=== PATIENT | female | born 1985 | race Caucasian/White ===

== ENCOUNTER 2018-06-24 19:51 | Emergency (ER) | payer OTHER ==
[2018-06-24 20:01] VITALS: BMI 33.3
--- NOTE | 2018-06-24 20:04 | PDOC ---
Rapid Medical Evaluation Chief Complaint: Labor Assessment Time Seen by Provider: 06/24/18 19:58 Medical Evaluation: Allergies Allergy/AdvReac Type Severity Reaction Status Date / Time No Known Allergies Allergy Verified 08/22/14 09:53 06/24/18 20:00 I have performed a brief in person evaluation of this patient. This patient presents with a CC of: complication Pt is a 33 YO fe male who is who states her OB sent her here because when she had her US last week she had a gestational sac in the uterus and "something in the fallopian tube." The patient states that her OB sent her here because her Quantitative HCG was grossly elevated. Pain is a 0/10. PE: Skin: Clear Lungs: Clear Heart: RRR Abd: No pain MS: Moves all extremities without difficulty. Neuro: Alert and oriented, no protanator drift, no slurred speech, no ataxia. 5/ 5 strength in UE and LE Psych: Appropriate affect I have ordered the following: Quantitative HCG The patient will proceed to the ED for further evaluation. Discharge Disposition - Diagnosis Ectopic Qualifiers: Location of ectopic : tubal Intrauterine status: unspecified Laterality: unspecified laterality Qualified Code(s): O00.109 - Unspecified tubal without intrauterine - Referrals - Patient Instructions - Post Discharge Activity
--- NOTE | 2018-06-24 21:31 | PDOC ---
History of Present Illness - General Chief Complaint: ,Possible Stated Complaint: SENT BY PCP Time Seen by Provider: 06/24/18 19:58 History Source: Patient - History of Present Illness Initial Comments: 06/24/18 23:34 33 year old female sent by Dr. Mae for r/o ectopic. patient was seen in the e learning coordinator office + beta with IUp and possible ectopic. patient denies abdominal pain, pelvic pain, urinary symptoms. Past History - Past Medical History Allergies/Adverse Reactions: Allergies Allergy/AdvReac Type Severity Reaction Status Date / Time No Known Allergies Allergy Verified 06/24/18 20:01 Home Medications: Ambulatory Orders Tablet 1 tab PO DAILY 08/22/14 Acetaminophen [Tylenol .Regular Strength -] 650 mg PO Q3H PRN #20 tablet Ferrous Sulfate [Feosol] 325 mg PO BID #60 ud 08/26/14 Witch Joseline 50% (Tucks) [Tucks Pads -] 1 pad TP PRN PRN #1 pad 08/26/14 Asthma: No Cancer: No Cardiac Disorders: No COPD: No Diabetes: No HTN: No Seizures: No Thyroid Disease: No - Suicide/Smoking/Psychosocial Hx Smoking History: Never smoked Have you smoked in the past 12 months: No Hx Alcohol Use: No Drug/Substance Use Hx: No Hx Substance Use Treatment: No Review of Systems - Review of Systems Able to Perform ROS?: Yes Is the patient limited Ugandan proficient: No Constitutional: No: Symptoms Reported, See HPI, Chills, Diaphoresis, Fever, Loss of Appetite, Malaise, Night Sweats, Weakness, Weight Stable, Unintentional Wgt. Loss, Unexplained wgt Loss, Other ABD/GI: No: Symptoms Reported, See HPI, Abdominal Distended, Abd. Pain w/ defecation, Blood Streaked Bowels, Constipated, Diarrhea, Difficulty Swallowing , Nausea, Poor Appetite, Poor Fluid Intake, Rectal Bleeding, Vomiting, Indigestion, Abdominal cramping, Tarry Stools, Other : No: Symptoms Reported, See HPI, Burning, Dysuria, Discharge, Frequency, Flank Pain, Hematuria, Incontinence, Pain, Urgency, Testicular Mass, Testicular Swelling, Lesions, Testicular Pain, Other *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 - Vital Signs Last Vital Signs Temp Pulse Resp BP Pulse Ox 71 18 170/100 99 06/24/18 19:56 06/24/18 19:56 06/24/18 19:56 06/24/18 19:56 - 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 General Appearance: Yes: Appropriately Dressed Female Pelvic Exam: positive: normal external exam, cervical os closed, normal adnexa, other (white aginal discharge). negative: CMT, vaginal bleeding Gastrointestinal/Abdominal: positive: Normal Bowel Sounds, Soft. negative: Tender Medical Decision Making - Medical Decision Making 06/24/18 23:[address] Seth covering Dr. mae. reviewed US result. recommends outpatient follow up. no further lab testing required. US reviewed with Dr. Napier no adnexal mass noted. 06/24/18 23:46 *DC/Admit/Observation/Transfer Diagnosis at time of Disposition: Intrauterine normal Qualifiers: Trimester: first trimester Qualified Code(s): Z34.91 - Encounter for supervision of normal , unspecified, first trimester - Discharge Dispostion Disposition: HOME - Referrals Referrals: Madeline Phelan MD [Primary Care Provider] - Millie Mae DO [Staff Physician] - Call tomorrow - Patient Instructions Printed Discharge Instructions: Managing Symptoms of Additional Instructions: Additional Instructions: * Please call your personal physician to report your Emergency Department visit and to report your progress, if any. * If there is no improvement in symptoms in 2 days call your physician. * Return to the Emergency Department for any worsening symptoms. drink plenty of fluids follow up with your doctor as soon as possible. - Post Discharge Activity Forms/Work/School Notes: Back to Work
[2018-06-25 00:08] VITALS: TEMP 98.2
[2018-06-25 00:09] VITALS: BP 140/76; PULSE 72
== END 2018-06-25 00:09 | disposition home or self-care (01) ==
LOC: JER 19:51
DX: O26.891 Other specified pregnancy related conditions, first trimester (principal); Z03.79 Encounter for other suspected maternal and fetal conditions ruled out; Z3A.01 Less than 8 weeks gestation of pregnancy
CPT/HCPCS: 36415; 76817-TC; 84702; 99281-25

== ENCOUNTER 2019-02-16 10:29 | Inpatient (IN) | payer OTHER ==
[2019-02-16 11:55] LABS: BASO % 0.4 % (0-2.0); EOS % 0.9 % (0-4.5); HEMATOCRIT 33.5 % (32.4-45.2); HEMOGLOBIN 10.7 GM/dL (10.7-15.3); LYMPH % 19.9 % (8-40); MCH 23.9 pg (25.7-33.7); MCHC 32.1 g/dl (32.0-36.0); MEAN CELL VOLUME 74.5 fl (80-96); MEAN PLT VOLUME 7.8 fl (7.5-11.1); MONO % 5.7 % (3.8-10.2); NEUT % 73.1 % (42.8-82.8); PLATELET COUNT 358 K/MM3 (134-434); RBC 4.49 M/mm3 (3.60-5.2); RDW 16.2 % (11.6-15.6); WHITE BLOOD COUNT 11.9 K/mm3 (4.0-10.0)
[2019-02-16 12:04] LABS: INR 0.94 (0.83-1.09); PROTHROMBIN TIME (PATIENT) 11.1 SEC (9.7-13.0)
[2019-02-16 12:07] LABS: ACTIVATED PTT 29.8 SECONDS (25.2-36.5)
[2019-02-16 12:29] LABS: BLOOD UREA NITROGEN 12.6 mg/dL (7-18); CALCIUM 9.1 mg/dL (8.5-10.1); CREATININE 0.8 mg/dL (0.55-1.3); POTASSIUM 4.3 mmol/L (3.5-5.1)
[2019-02-16] MEDS ORDERED: AMPICILLIN SODIUM 2 GM VIAL ONE (17:09)
[2019-02-16 17:31] VITALS: BMI 35.1
[2019-02-16] MEDS ORDERED: AMPICILLIN - 2 GM in DEXTROSE 5%-WATER 100 ML IVPB STA (18:34)
[2019-02-16] MEDS ORDERED: AMPICILLIN - 1 GM in DEXTROSE 5%-WATER 100 ML IVPB SCH (18:45)
[2019-02-16] MEDS ORDERED: ELECTROLYTE-148 SOLN 1,000 ML IV SCH ×2 (19:15→20:00)
--- NOTE | 2019-02-16 19:19 | HP ---
Past Medical History - Admission Chief Complaint: rupture of membranes History of Present Illness: 33 y/o female with SIUP at 41 weeks here with c/o ROM. Pt seen in office today , was transverse presentation, planned for c section on 02/18/19. otherwise uncomplicated. History Source: Patient, Medical Record Limitations to Obtaining History: No Limitations - Past Medical History Cardiovascular: No: HTN Pulmonary: No: COPD Gastrointestinal: No: GERD Hepatobiliary: No: Hepatitis B, Hepatitis C Renal/: No: UTI Reproductive: No: Fibroids, PID ...: 2 ...Para: 1 ...Term: 1 ...: 0 ...Spon : 0 ...Induced : 0 ...Multiple Gestation: 0 ...LMP: 05/06/18 ... Weeks Gestation by Dates: 40.6 ...EDC by Dates: 02/10/19 Heme/Onc: No: Anemia Infectious Disease: No: HIV, MRSA, STD's Psych: No: Anxiety, Bipolar, Depression - Past Surgical History Past Surgical History: Yes: None Hx Myomectomy: No Hx Transabdominal Cerclage: No - Smoking History Smoking history: Never smoked Have you smoked in the past 12 months: No - Alcohol/Substance Use Hx Alcohol Use: No - Social History Usual Living Arrangement: Yes: With Spouse ADL: Independent History of Recent Travel: No Home Medications - Allergies Allergies/Adverse Reactions: Allergies Allergy/AdvReac Type Severity Reaction Status Date / Time No Known Allergies Allergy Verified 02/16/19 17:31 - Home Medications Home Medications: Ambulatory Orders Tablet 1 tab PO DAILY 08/22/14 Ferrous Sulfate [Feosol] 325 mg PO BID #60 ud 08/26/14 Review of Systems - Review of Systems Constitutional: reports: No Symptoms Eyes: reports: No Symptoms HENT: reports: No Symptoms Neck: reports: No Symptoms Cardiovascular: reports: No Symptoms Respiratory: reports: No Symptoms Gastrointestinal: reports: No Symptoms Genitourinary: reports: No Symptoms Breasts: reports: No Symptoms Reported Musculoskeletal: reports: No Symptoms Integumentary: reports: No Symptoms Neurological: reports: No Symptoms Endocrine: reports: No Symptoms Hematology/Lymphatic: reports: No Symptoms Psychiatric: reports: No Symptoms 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 - Maternity Vital Signs: Vital Signs Temperature 98.1 F 02/16/19 18:00 Pulse Rate 79 02/16/19 18:00 Respiratory Rate 18 02/16/19 18:00 Blood Pressure 113/61 02/16/19 18:00 O2 Sat by Pulse Oximetry (%) Constitutional: Yes: Well Nourished, No Distress, Calm Eyes: Yes: Conjunctiva Clear, EOM Intact HENT: Yes: Atraumatic, Normocephalic Cardiovascular: Yes: Regular Rate and Rhythm Lungs: Clear to auscultation - Abdominal Exam/OB Number of Fetuses: Single Presentation: Transverse Contractions: Yes Regularity: Irregular Intensity: Mild Category: I - Vaginal Exam/OB Dilatation (cm): 0.5 Effacement (%): 0 - 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 Psychiatric: Yes: Alert, Oriented - Labs Lab Results: CBC, BMP 02/16/19 10:31 02/16/19 10:31 Hemorrhage Risk Assessment - Risk Factors Medium Risk Factors: Yes: None High Risk Factors: Yes: None Risk Score: 1 Risk Level: Medium Risk Problem List - Problems (1) Malpresentation of fetus Code(s): O32.9XX0 - MATERNAL CARE FOR MALPRESENTATION OF FETUS, UNSP, UNSP Assessment/Plan 33 y/o P1 female with SIUP at 40.6 week here with SROM, transverse presentation NPO Onofre catheter plan for delivery risks of procedure discussed with pt and family informed consent obtained anesthesia aware
[2019-02-16] MEDS ORDERED: ELECTROLYTE-148 SOLN 500 ML IV ONE (19:54)
[2019-02-16] MEDS ORDERED: CITRIC ACID/SODIUM CITRATE 30 ML UNIT-DOSE CUP PO ONE (19:54)
[2019-02-16] MEDS ORDERED: METHYLERGONOVINE MALEATE 0.2 MG/1 ML AMP IM PRN (19:57)
[2019-02-16] MEDS ORDERED: IBUPROFEN 800 MG/8 ML IJ IVPB PRN (19:57)
[2019-02-16] MEDS ORDERED: OXYTOCIN 20 UNITS in 0.9% NS 20 UNIT/1,000 ML INFUS.BAG IV SCH (20:00)
[2019-02-16] MEDS ORDERED: AMPICILLIN SODIUM 1 GM VIAL ONE (21:13)
--- NOTE | 2019-02-16 21:54 | PN ---
Ante-Partal Exam - Subjective Subjective: Pt comfortable. Vital Signs: Vital Signs Temperature 98.1 F 02/16/19 18:00 Pulse Rate 79 02/16/19 18:00 Respiratory Rate 18 02/16/19 18:00 Blood Pressure 113/61 02/16/19 18:00 O2 Sat by Pulse Oximetry (%) Bleeding: No Headache: No Visual changes: No Right upper quadrant pain: No Pain (scale 1-10): 0 - Contractions Contractions: Yes Regularity: Irregular Intensity: Unaware - Exam during Labor Heart Rate: 140 Variability: Moderate Category: I Monitor Accelerations: Present Monitor Decelerations: None Exam: Vaginal Dilatation (cm): ft Amniotic Membrane Status: Ruptured Amniotic Fluid: Meconium Stained Presentation: Transverse/Shoulder - Assessment/Plan Assessment/Plan: FHR continues to be category 1 awaiting delivery NPO Onofre placed anesthesia aware
--- NOTE | 2019-02-17 01:22 | OP ---
Operative Note - Note: Operative Date: 02/17/19 Pre-Operative Diagnosis: transverse presentation/malprsentation, SIUP at 41 week Operation: primary LTCS Findings: normal b/l tubes and ovaries, live female Post-Operative Diagnosis: Same as Pre-op Surgeon: Millie Mae Sales And Marketing Vice President: Remy Lind Anesthesiologist/COUNTY ORDINARY: Manoj Valencia Anesthesia: Spinal Specimens Removed: placenta Estimated Blood Loss (mls): 600 Operative Report Dictated: Yes
[2019-02-17] MEDS: FERROUS SO4 325 MG TABLET (FP) PO SCH ×3 (06:59→20:39)
[2019-02-17 08:04] LABS: BASO % 0.3 % (0-2.0); EOS % 0.1 % (0-4.5); HEMATOCRIT 30.4 % (32.4-45.2); HEMOGLOBIN 9.8 GM/dL (10.7-15.3); MCH 24.6 pg (25.7-33.7); MCHC 32.4 g/dl (32.0-36.0); MEAN CELL VOLUME 75.7 fl (80-96); MONO % 5.4 % (3.8-10.2); NEUT % 81.2 % (42.8-82.8); PLATELET COUNT 314 K/MM3 (134-434); RBC 4.01 M/mm3 (3.60-5.2); WHITE BLOOD COUNT 12.7 K/mm3 (4.0-10.0)
[2019-02-17] MEDS: SIMETHICONE 80 MG TAB.CHEW (FP) PO PRN (18:20)
[2019-02-17] MEDS: IBUPROFEN 600 MG TABLET (FP) PO PRN (18:20)
[2019-02-17] MEDS: oxyCODONE HCL 5 MG TABLET PO PRN (18:21)
[2019-02-17] MEDS ORDERED: BISACODYL 10 MG SUPP.RECT RC PRN (19:57)
[2019-02-17] MEDS: AMPICILLIN - 1 GM in DEXTROSE 5%-WATER 100 ML IVPB SCH ×2 (20:40→20:41)
[2019-02-18] MEDS: oxyCODONE HCL 5 MG TABLET PO PRN ×3 (04:07→15:55)
[2019-02-18] MEDS: IBUPROFEN 600 MG TABLET (FP) PO PRN ×3 (04:08→15:56)
--- NOTE | 2019-02-18 07:14 | PN ---
Post Note - Post Date of Delivery: 02/17/19 Vital Signs: Vital Signs - 24 hr 02/17/19 02/17/19 02/17/19 08:00 09:00 10:00 Temperature 99.0 F Pulse Rate 87 Respiratory 18 18 18 Rate Blood Pressure 123/75 02/17/19 02/17/19 02/17/19 11:00 12:00 13:00 Temperature Pulse Rate Respiratory 18 18 18 Rate Blood Pressure 02/17/19 02/17/19 02/17/19 14:00 15:00 16:00 Temperature 99.0 F Pulse Rate 87 Respiratory 18 18 18 Rate Blood Pressure 123/75 02/17/19 02/17/19 02/17/19 17:00 18:00 19:00 Temperature 98.4 F Pulse Rate 87 Respiratory 18 18 18 Rate Blood Pressure 127/86 02/17/19 02/17/19 02/18/19 20:00 22:00 00:00 Temperature 97.9 F Pulse Rate 73 Respiratory 18 18 18 Rate Blood Pressure 119/69 02/18/19 02/18/19 02/18/19 02:00 04:00 06:00 Temperature 97.7 F 98.3 F Pulse Rate 81 78 Respiratory 20 18 20 Rate Blood Pressure 117/71 109/72 Labs: Laboratory Results - last 24 hr 02/17/19 07:07 WBC 12.7 H RBC 4.01 Hgb 9.8 L Hct 30.4 L MCV 75.7 L MCH 24.6 L MCHC 32.4 RDW 16.0 H Plt Count 314 MPV 8.0 Absolute Neuts (auto) 10.3 H Neutrophils % 81.2 Lymphocytes % 13.0 D Monocytes % 5.4 Eosinophils % 0.1 D Basophils % 0.3 Nucleated RBC % 0 - Subjective Subjective: No Complaints, No Nausea or vomiting - Objective Breast: Not engorged Abdomen: Soft, Non-tender, Other (Dressing removed) Uterus: Fundus firm Vagina: Scant lochia Extremities: Non-tender - Assessment/Plan (1) delivery delivered Assessment: Other (POD1) Plan: Routine Care
[2019-02-18] MEDS: FERROUS SO4 325 MG TABLET (FP) PO SCH ×2 (07:49→18:09)
[2019-02-18] MEDS: SIMETHICONE 80 MG TAB.CHEW (FP) PO PRN ×2 (09:00→15:56)
--- NOTE | 2019-02-18 10:51 | PN ---
Progress Note (short form) - Note Progress Note: Post op day#2.S/P C Section under spinal anesthesia with duramorph uneventful.Patient stable and has little pain for which she is on medication.No any anesthesia related problem.Patient Dc from the anesthesia care.
[2019-02-19] MEDS: oxyCODONE HCL 5 MG TABLET PO PRN ×2 (01:09→07:16)
[2019-02-19] MEDS: SIMETHICONE 80 MG TAB.CHEW (FP) PO PRN ×2 (01:09→07:17)
--- NOTE | 2019-02-19 06:11 | PN ---
Post Progress Note Type of Delivery: Primary C/S Vital Signs: Vital Signs Temperature 97.9 F 02/18/19 22:00 Pulse Rate 80 02/18/19 22:00 Respiratory Rate 18 02/18/19 22:00 Blood Pressure 122/69 02/18/19 22:00 O2 Sat by Pulse Oximetry (%) 100 02/18/19 21:00 Uterus: Yes: Fundus Firm, Fundus above umbilicus Incision: Yes: Sutures intact Abdomen/GI: Yes: Abdomen soft Lochia: Yes: Rubra Lochia, amount: Small Extremities: Yes: Calves non-tender. No: Calf tenderness Perineum: Yes: Intact Activity: Ambulating - Labs Labs: CBC WBC 12.7 K/mm3 (4.0-10.0) H 02/17/19 07:07 RBC 4.01 M/mm3 (3.60-5.2) 02/17/19 07:07 Hgb 9.8 GM/dL (10.7-15.3) L 02/17/19 07:07 Hct 30.4 % (32.4-45.2) L 02/17/19 07:07 MCV 75.7 fl (80-96) L 02/17/19 07:07 MCH 24.6 pg (25.7-33.7) L 02/17/19 07:07 MCHC 32.4 g/dl (32.0-36.0) 02/17/19 07:07 RDW 16.0 % (11.6-15.6) H 02/17/19 07:07 Plt Count 314 K/MM3 (134-434) 02/17/19 07:07 MPV 8.0 fl (7.5-11.1) 02/17/19 07:07 Absolute Neuts (auto) 10.3 K/mm3 (1.5-8.0) H 02/17/19 07:07 Neutrophils % 81.2 % (42.8-82.8) 02/17/19 07:07 Lymphocytes % 13.0 % (8-40) D 02/17/19 07:07 Monocytes % 5.4 % (3.8-10.2) 02/17/19 07:07 Eosinophils % 0.1 % (0-4.5) D 02/17/19 07:07 Basophils % 0.3 % (0-2.0) 02/17/19 07:07 Nucleated RBC % 0 % (0-0) 02/17/19 07:07 Problem List - Problems (1) Malpresentation of fetus Code(s): O32.9XX0 - MATERNAL CARE FOR MALPRESENTATION OF FETUS, UNSP, UNSP (2) delivery delivered Code(s): O82 - ENCOUNTER FOR DELIVERY WITHOUT INDICATION Assessment/Plan 33 y/o POD#2 s/p primary c section for malpresentatin doing well AFVSS Hgb 9.8 regular diet PO pain meds routine care
--- NOTE | 2019-02-19 06:41 | DS ---
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 Vital Signs: Vital Signs Temperature 97.9 F 02/18/19 22:00 Pulse Rate 80 02/18/19 22:00 Respiratory Rate 18 02/18/19 22:00 Blood Pressure 122/69 02/18/19 22:00 O2 Sat by Pulse Oximetry (%) 100 02/18/19 21:00 Constitutional: Yes: Well Nourished, No Distress, Calm Eyes: Yes: Conjunctiva Clear, EOM Intact HENT: Yes: Atraumatic, Normocephalic Neck: Yes: Supple Cardiovascular: Yes: Regular Rate and Rhythm Respiratory: Yes: Regular, CTA Bilaterally Gastrointestinal: Yes: Normal Bowel Sounds, Soft ....Post : Yes: Uterus firm, Uterus non-tender Wound/Incision: Yes: Clean/Dry, Well Approximated Neurological: Yes: Alert, Oriented Psychiatric: Yes: Alert, Oriented Labs: CBC, BMP 02/17/19 07:07 02/16/19 10:31 Delivery - Delivery Section: Primary Type of Anesthesia: Spinal EBL (cc): 600 Delivery, Single - Stages of Labor Date of Delivery: 02/17/19 Time of Delivery: 00:50 Time Placenta Delivered: 00:51 Placenta: Yes: Manual Removal - Condition of Infant Managed Care Provider/Signs Sales Representative Present: Yes Name: Rafaela Villalobos Gender: Female Weight: 8 lb 8 oz Position: Right, OT Total Hours ROM (Hrs/Mins): 8hrs 20min - 1 Minute Total Score: 9 5 Minutes Total Score: 9 - Feeding Plan Initial Plan: Elected not to breastfeed exclusively throughout hospitalization Discharge Summary Reason For Visit: LABOR Current Active Problems delivery delivered (Acute) Malpresentation of fetus (Acute) Hospital Course: Pt admitted on 02/16 with complaints of ROM. Pt was known to be transverse presentation and was planned for c section 02/18/19. 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 She had an uncomplicated post recovery and was stable to be discharged home on post op day 2. Condition: Good - Instructions Diet, Activity, Other Instructions: Physical activity Resume your normal everyday activity as tolerated no heavy lifting or exercise until seen by your surgeon. You may walk unlimited amounts and climb stairs. You may resume driving the car when you feel safe and comfortable behind the wheel. No sexual activity as instructed. Wound care If there are tapes on the skin under the out of bandage leave them in place. They will peel off in the next 7 to 10 days. Do Not Peel them off. You may shower the day after surgery. If there are tapes present on the skin, you may shower over them. Diet There are no dietary restrictions. Eat healthy, high-fiber foods. Drink 6 to 8 glasses of liquid each day. This will assist in keeping your bowels regular. Pain management You may take Tylenol or Ibuprofen (for example, Motrin, Advil etc.) for mild pain. IF any prescription medication is sent to the pharmacy please take only for moderate to severe pain as directed. Call MD for any of the following: Severe pain not relieved by medication Fever of 101 or higher Excessive bleeding or drainage on dressing Inability to urinate Disposition: HOME - Home Medications Comprehensive Discharge Medication List: Ambulatory Orders Tablet 1 tab PO DAILY 08/22/14 Ferrous Sulfate [Feosol] 325 mg PO BID #60 ud 08/26/14
[2019-02-19] MEDS: FERROUS SO4 325 MG TABLET (FP) PO SCH (07:17)
[2019-02-19] MEDS: IBUPROFEN 600 MG TABLET (FP) PO PRN (07:17)
[2019-02-19 07:31] LABS: BASO % 0.3 % (0-2.0); EOS % 1.9 % (0-4.5); HEMATOCRIT 27.8 % (32.4-45.2); LYMPH % 23.4 % (8-40); MCH 24.4 pg (25.7-33.7); MCHC 32.4 g/dl (32.0-36.0); MEAN CELL VOLUME 75.5 fl (80-96); MEAN PLT VOLUME 7.7 fl (7.5-11.1); MONO % 7.6 % (3.8-10.2); NEUT % 66.8 % (42.8-82.8); RBC 3.68 M/mm3 (3.60-5.2); RDW 16.1 % (11.6-15.6); WHITE BLOOD COUNT 9.7 K/mm3 (4.0-10.0)
[2019-02-19 08:25] LABS: PLATELET COUNT 296 K/MM3 (134-434)
[2019-02-19 11:48] VITALS: BP 122/79; PULSE 89; TEMP 98
--- NOTE | 2019-02-23 16:27 | PATH ---
Surgical Pathology Report Patient Name: NAHOMI CASTAÑEDA [facility]. Rec. #: [id number] /Age/Gender: 1985 (Age: 33) / F Account: [id number] Location: [facility] OBS/QUALITY ASSURANCE MONITOR BODY Taken: 02/17/2019 Received: 02/17/2019 Reported: 02/23/2019 Physicians: Braeden Mansfield M.D. Specimen(s) Received PLACENTA Clinical History 41.0 weeks, , primary for transverse lie, SROM, meconium Final Diagnosis PLACENTA: THIRD TRIMESTER PLACENTA. TRIVASCULAR CORD WITH ACUTE FUNISITIS. MEMBRANES WITH NO DIAGNOSTIC ABNORMALITIES. Electronically Signed Tiffany Johnson M.D. Gross Description The specimen is received fresh labeled placenta and is a 596 gram, 17.5 x 15.5 x 3.3 cm. placenta with attached membranes and umbilical cord. The attached membranes are rodrigeuz, translucent with focal opacities and insert marginally. The umbilical cord measures 30 cm. in length and averages 1 cm. in diameter. The cord inserts centrally. No true knots or strictures are identified. Cut surface of the umbilical cord reveals 3 vessels. The surface is liz blue with moderate fibrin deposition and appropriate caliber vessels. The maternal surface is red-brown with focal defects. Sectioning reveals red-brown, spongy parenchyma. No lesions are identified. Backfiller sections are submitted in three cassettes as follows: 1- membrane rolls and umbilical cord; 2-3- full thickness sections of placenta. 02/20/201902/20/2019
--- NOTE | 2019-03-03 09:29 | OP ---
DATE OF OPERATION: 02/17/2019 PREOPERATIVE DIAGNOSIS: Spontaneous rupture of membranes at 41 weeks gestation, transverse presentation. POSTOPERATIVE DIAGNOSIS: Spontaneous rupture of membranes at 41 weeks gestation, transverse presentation. PROCEDURE: Primary low transverse section. SURGEON: Millie Mae MD ANESTHESIA: Spinal. ANESTHESIOLOGIST: Baldemar Valencia MD GEOLOGICAL SPECIALIST: CHAVO Otero SPECIMENS: Placenta. FINDINGS: Normal bilateral tubes and ovaries, live female . ESTIMATED BLOOD LOSS: 600 mL. COMPLICATIONS: None. COUNTS: Sponge and needle counts correct. DISPOSITION: Stable to PACU. BRIEF HISTORY AND PROCEDURE: Patient is a 33-year-old female who was admitted to [facility] on February 16, 2019, with spontaneous rupture of membranes. Upon examination, the position was found to be transverse. At this point, the patient was counseled on her options and she signed an informed consent for a primary low transverse section. She was taken back to the operating room, given spinal anesthesia, placed in the dorsal supine position. A Onofre catheter was placed under sterile conditions. She was prepped and draped in the usual sterile fashion, and a hard time-out was performed. A Pfannenstiel skin incision was created in the skin with the scalpel and carried to the underlying layer of rectus fascia sharply. The fascia was incised on either side of the midline sharply, and this incision was carried in the superior lateral direction sharply. The fascia was tented upward and dissected off the underlying layer of rectus muscle sharply, and the rectus muscle was identified in the midline, laterally, and the peritoneum was entered bluntly to allow for adequate room for delivery. A bladder flap was then inserted. A low transverse incision was created on the uterus with the scalpel and the uterus excision was extended in a superior lateral direction bluntly. The was then delivered without difficulty by bilateral shoulders. The remainder of the infant delivered with ease. The cord was clamped twice and cut in between. The infant was taken over to the warmer to be assessed by Neonatology staff, which was present for the entire procedure. The placenta was delivered with 3-vessel cord intact. It was manually extracted. The uterus was exteriorized from the abdomen and cleared of all membrane and debris with a dry lap sponge. Bilateral tubes and ovaries were noted to be normal. The hysterotomy was reapproximated in a double-layer closure, first using 1 Vicryl in a running locked layer, a 2nd layer of 0 Biosyn in a running imbricating fashion. Excellent hemostasis was achieved. Posterior cul-de-sac was suctioned. The uterus was placed back in the abdomen. Bilateral gutters were inspected and cleared of all clot and debris. Again, hysterotomy was noted to be hemostatic. Next, the peritoneum was reapproximated in a running fashion. The musculature was reapproximated with 2 interrupted sutures using 2-0 chromic. The fascia was reapproximated using 1 Vicryl in a running fashion. The subcutaneous tissue was irrigated and reapproximated using 1 Vicryl in a running fashion. The skin was reapproximated using 3-0 Vicryl in a subcuticular fashion, and Steri-Strips were applied. The patient tolerated the procedure well and was recovering in stable condition in the PACU after procedure. MILLIE MAE DO /[id number]
== END 2019-02-19 12:40 | disposition home or self-care (01) | DRG 540 ==
LOC: JPSTI 10:29 → JLDR 16:25 → J3W 02-17 03:23
PROVIDERS: ADMIT Obstetrics & Gynecology; ATTEND Obstetrics & Gynecology
PROC: 10D00Z1 Extraction of Products of Conception, Low, Open Approach (ICD-10-PCS; principal; 2019-02-17)
DX: O48.0 Post-term pregnancy (principal); O32.2XX0 Maternal care for transverse and oblique lie, not applicable or unspecified; Z3A.41 41 weeks gestation of pregnancy; Z37.0 Single live birth
CPT/HCPCS: 36415; 80048; 85025; 85610; 85730; 86593; 86850; 86900; 86901; 88307-TC

== ENCOUNTER 2021-03-18 07:00 | Inpatient (IN) | payer OTHER ==
[2021-03-18] MEDS: ELECTROLYTE-148 SOLN 1,000 ML IV SCH (07:30)
[2021-03-18 08:14] LABS: BASO % 0.4 % (0-2.0); EOS % 1.3 % (0-4.5); HEMATOCRIT 34.1 % (32.4-45.2); HEMOGLOBIN 11.5 GM/dL (10.7-15.3); LYMPH % 20.6 % (8-40); MCH 26.5 pg (25.7-33.7); MCHC 33.6 g/dl (32.0-36.0); MEAN CELL VOLUME 78.8 fl (80-96); MONO % 7.3 % (3.8-10.2); NEUT % 70.4 % (42.8-82.8); PLATELET COUNT 256 10^3/uL (134-434); RBC 4.33 M/mm3 (3.60-5.2); RDW 15.5 % (11.6-15.6); WHITE BLOOD COUNT 9.7 K/mm3 (4.0-10.0)
[2021-03-18 08:29] LABS: INR 0.93 (0.83-1.09); PROTHROMBIN TIME (PATIENT) 11.3 SEC (9.7-13.0)
[2021-03-18 08:35] LABS: BLOOD UREA NITROGEN 10.4 mg/dL (7-18)
[2021-03-18 08:38] LABS: CREATININE 0.7 mg/dL (0.55-1.3)
[2021-03-18 08:58] VITALS: BMI 38.2
[2021-03-18] MEDS ORDERED: morphine SULFATE/PF 0.5 MG/ML (2cc Syringe - QUVA) EP ONE (09:31)
[2021-03-18] MEDS ORDERED: ONDANSETRON 4 MG/2 ML VIAL IVPUSH PRN (09:31)
[2021-03-18] MEDS ORDERED: CITRIC ACID/SODIUM CITRATE 30 ML UNIT-DOSE CUP PO ONE (09:53)
[2021-03-18] MEDS ORDERED: ceFAZolin SODIUM 1 GM VIAL ONE (10:19)
[2021-03-18] MEDS ORDERED: morphine SULFATE/PF 0.5 MG/ML (2cc Syringe - QUVA) ONE (10:19)
[2021-03-18] MEDS ORDERED: PHENYLEPHRINE HCL 10 MG/1 ML SINGLE DOSE VIAL ONE (10:35)
[2021-03-18] MEDS ORDERED: ONDANSETRON 4 MG/2 ML VIAL ONE (10:36)
[2021-03-18] MEDS ORDERED: OXYTOCIN 10 UNITS/ML VIAL ONE ×2 (10:43→11:20)
[2021-03-18] MEDS ORDERED: METOCLOPRAMIDE HCL INJECTION 10 MG/2 ML VIAL ONE (11:12)
[2021-03-18] MEDS ORDERED: METHYLERGONOVINE MALEATE 0.2 MG/1 ML AMP IM PRN (11:23)
[2021-03-18] MEDS ORDERED: BENZOCAINE 28 GM HEMORRHOIDAL OINTMENT TP PRN (11:23)
[2021-03-18] MEDS ORDERED: IBUPROFEN 800 MG/8 ML IJ IVPB PRN (11:23)
[2021-03-18] MEDS ORDERED: BENZOCAINE 20% 57 GM BOTTLE TP PRN (11:23)
[2021-03-18] MEDS ORDERED: oxyCODONE HCL 5 MG TABLET PO PRN (11:23)
[2021-03-18] MEDS ORDERED: WITCH HAZEL 50% (TUCKS) 40 PAD/JAR PAD TP PRN (11:23)
[2021-03-18] MEDS ORDERED: KETOROLAC TROMETHAMINE 30 MG/1 ML VIAL ONE (11:29)
[2021-03-18] MEDS ORDERED: OXYTOCIN 20 UNITS in 0.9% NS 20 UNIT/1,000 ML INFUS.BAG IV ONE (12:37)
[2021-03-18] MEDS: FERROUS SO4 325 MG TABLET (FP) PO SCH (17:41)
[2021-03-19 07:50] LABS: BASO % 0.2 % (0-2.0); EOS % 0.8 % (0-4.5); HEMATOCRIT 30.5 % (32.4-45.2); HEMOGLOBIN 10.3 GM/dL (10.7-15.3); LYMPH % 14.5 % (8-40); MCH 26.7 pg (25.7-33.7); MCHC 33.7 g/dl (32.0-36.0); MEAN CELL VOLUME 79.2 fl (80-96); MONO % 7.6 % (3.8-10.2); NEUT % 76.9 % (42.8-82.8); PLATELET COUNT 251 10^3/uL (134-434); RBC 3.85 M/mm3 (3.60-5.2); RDW 15.3 % (11.6-15.6); WHITE BLOOD COUNT 12.3 K/mm3 (4.0-10.0)
[2021-03-19] MEDS: FERROUS SO4 325 MG TABLET (FP) PO SCH ×2 (10:06→18:00)
[2021-03-19] MEDS: PRENATAL VITAMINS W/ FOLIC ACID TABLET (FP) PO SCH (10:06)
[2021-03-19] MEDS ORDERED: BISACODYL 10 MG SUPP.RECT RC PRN (11:24)
[2021-03-19] MEDS: IBUPROFEN 600 MG TABLET (FP) PO PRN ×3 (12:47→23:02)
[2021-03-19] MEDS: SIMETHICONE 80 MG TAB.CHEW (FP) PO PRN ×2 (12:47→18:01)
[2021-03-19] MEDS: ACETAMINOPHEN 325 MG TABLET (FP) PO PRN ×3 (12:47→23:02)
[2021-03-20] MEDS: SIMETHICONE 80 MG TAB.CHEW (FP) PO PRN ×4 (03:05→23:01)
[2021-03-20] MEDS: ACETAMINOPHEN 325 MG TABLET (FP) PO PRN ×4 (03:05→23:00)
[2021-03-20] MEDS: IBUPROFEN 600 MG TABLET (FP) PO PRN ×5 (03:07→23:00)
[2021-03-20] MEDS: FERROUS SO4 325 MG TABLET (FP) PO SCH ×2 (09:11→17:59)
[2021-03-20] MEDS: PRENATAL VITAMINS W/ FOLIC ACID TABLET (FP) PO SCH (09:11)
[2021-03-20] MEDS: OXYTOCIN 20 UNITS in 0.9% NS 20 UNIT/1,000 ML INFUS.BAG IV SCH ×3 (20:28→20:30)
[2021-03-20] MEDS: ELECTROLYTE-148 SOLN 1,000 ML IV SCH ×2 (20:29→20:30)
[2021-03-21] MEDS: IBUPROFEN 600 MG TABLET (FP) PO PRN (06:08)
[2021-03-21] MEDS: ACETAMINOPHEN 325 MG TABLET (FP) PO PRN (06:09)
[2021-03-21] MEDS: SIMETHICONE 80 MG TAB.CHEW (FP) PO PRN (06:09)
[2021-03-21] MEDS: FERROUS SO4 325 MG TABLET (FP) PO SCH (07:41)
[2021-03-21 07:54] LABS: BASO % 0.7 % (0-2.0); EOS % 3.2 % (0-4.5); HEMATOCRIT 26.7 % (32.4-45.2); HEMOGLOBIN 8.9 GM/dL (10.7-15.3); LYMPH % 24.5 % (8-40); MCH 26.7 pg (25.7-33.7); MCHC 33.2 g/dl (32.0-36.0); MEAN CELL VOLUME 80.4 fl (80-96); MEAN PLT VOLUME 8.3 fl (7.5-11.1); MONO % 8.3 % (3.8-10.2); NEUT % 63.3 % (42.8-82.8); PLATELET COUNT 233 10^3/uL (134-434); RBC 3.33 M/mm3 (3.60-5.2); RDW 15.4 % (11.6-15.6)
[2021-03-21] MEDS: PRENATAL VITAMINS W/ FOLIC ACID TABLET (FP) PO SCH (09:20)
[2021-03-21 09:56] VITALS: BP 143/86; PULSE 69; TEMP 98.3
== END 2021-03-21 12:20 | disposition home or self-care (01) | DRG 785 ==
LOC: JLDR 07:00 → J3W 13:00
PROVIDERS: ADMIT Obstetrics & Gynecology; ATTEND Obstetrics & Gynecology
PROC: 10D00Z1 Extraction of Products of Conception, Low, Open Approach (ICD-10-PCS; principal; 2021-03-18)
PROC: 0UL70ZZ Occlusion of Bilateral Fallopian Tubes, Open Approach (ICD-10-PCS; 2021-03-18)
DX: O34.219 Maternal care for unspecified type scar from previous cesarean delivery (principal); O32.2XX0 Maternal care for transverse and oblique lie, not applicable or unspecified; Z37.0 Single live birth; Z3A.38 38 weeks gestation of pregnancy; Z30.2 Encounter for sterilization
CPT/HCPCS: 36415; 80048; 85025; 85610; 85730; 86780; 86850; 86900; 86901; 88302-TC; 88307-TC; C9803; U0003; U0005